=== PATIENT | female | born 1950 | race Native Hawaiian/Other Pacific Islander ===

== ENCOUNTER 2017-01-31 10:50 | Emergency (ER) | payer OTHER ==
[2017-01-31 11:13] VITALS: O2SAT 98
[2017-01-31] MEDS ORDERED: Sodium Chloride 0.9% 1,000 ML IV ONE (11:26)
--- NOTE | 2017-01-31 11:32 | C.PDOC ---
History Of Present Illness 66 yr old female presents to the ER with complaints of hematuria, associated with right sided abdominal pain which started yesterday. Patient states the abdominal pain resolved, however the hematuria continues. Patient denies fever, chills, nausea, vomiting, diarrhea, trauma, recent travel, weakness or numbness. Time Seen by Provider: 01/31/17 11:05 Chief Complaint (Nursing): Abdominal Pain History Per: Patient History/Exam Limitations: no limitations Onset/Duration Of Symptoms: Days (1) Current Symptoms Are (Timing): Gone Pain Scale Rating Of: 1 Location Of Pain/Discomfort: RLQ Radiation Of Pain To:: None Exacerbating Factors: None Recent travel outside of the [place]: No Past Medical History Reviewed: Historical Data, Nursing Documentation, Vital Signs Vital Signs: Last Vital Signs Temp 98.5 F 01/31/17 13:14 Pulse 82 01/31/17 13:14 Resp 18 01/31/17 13:14 BP 162/82 H 01/31/17 13:14 Pulse Ox 98 01/31/17 13:51 - Medical History PMH: HTN Family History: States: No Known Family Hx - Social History Hx Alcohol Use: No Hx Substance Use: No - Immunization History Hx Tetanus Toxoid Vaccination: No Hx Influenza Vaccination: No Hx Pneumococcal Vaccination: No Review Of Systems Except As Marked, All Systems Reviewed And Found Negative. Constitutional: Negative for: Fever, Chills Gastrointestinal: Positive for: Abdominal Pain (Right ). Negative for: Nausea, Vomiting, Diarrhea Genitourinary: Positive for: Hematuria Neurological: Negative for: Weakness, Numbness Physical Exam - Physical Exam Appears: Non-toxic, No Acute Distress Skin: Warm, Dry, No Rash Head: Atraumatic, Normacephalic Eye(s): bilateral: Normal Inspection, PERRL, EOMI Oral Mucosa: Moist Neck: Normal ROM, No Midline Cervical Tenderness, No Paracervical Tenderness, Supple Chest: Symmetrical, No Tenderness Cardiovascular: Rhythm Regular, No Friction Rub, No Murmur Respiratory: Normal Breath Sounds, No Rales, No Rhonchi, No Wheezing, No Other Gastrointestinal/Abdominal: Normal Exam, Soft, No Tenderness, No Guarding Back: Normal Inspection, No CVA Tenderness, No Vertebral Tenderness Extremity: Normal ROM, No Swelling Neurological/Psych: Oriented x3, Normal Speech, Normal Motor Gait: Steady ED Course And Treatment - Laboratory Results Result Diagrams: 01/31/17 11:38 01/31/17 11:38 O2 Sat by Pulse Oximetry: 98 (RA) Pulse Ox Interpretation: Normal - CT Scan/US CT - Abd & Pelvis Other Rad Studies (CT/US): Read By Radiologist, Radiology Report Reviewed CT/US Interpretation: PROCEDURE: CT Abdomen and Pelvis without intravenous contrast. HISTORY: right sided abd pain, R flank. COMPARISON: 04/23/2012. TECHNIQUE: Without contrast.. Contrast Dose: 0. Radiation dose: Total exam DLP = 438.61 mGy-cm. This CT exam was performed using one or more of the following dose reduction techniques: Automated exposure control, adjustment of the mA and/or kV according to patient size, and/or use of iterative reconstruction technique. FINDINGS: LOWER THORAX: Unremarkable. LIVER: Please note that evaluation of the liver is limited. The most superior aspect of the right hepatic lobe has not been included in this examination. The liver is enlarged, measuring approximately 18.9 cm craniocaudal. The liver is diffusely diminished in attenuation consistent with fatty infiltration. There is no mass. The contour is smooth. There is no biliary dilatation. GALLBLADDER AND BILE DUCTS: Unremarkable. PANCREAS: Unremarkable. No gross lesion or ductal dilatation. SPLEEN: Unremarkable. ADRENALS: Unremarkable. No mass. KIDNEYS AND URETERS: Mild right hydronephrosis and hydroureter. 2 mm nonobstructing right lower pole renal calculus. 4 mm calculus at the right ureteral orifice. No left renal or ureteral calculus. No left hydronephrosis. No renal mass. . Minimal right perinephric stranding. VASCULATURE: Unremarkable. No aortic aneurysm. BOWEL: Sigmoid diverticulosis without evidence of diverticulitis. No bowel obstruction. No other abnormal bowel loops. APPENDIX: Unremarkable. Normal appendix. PERITONEUM: Unremarkable. No free fluid. No free air. LYMPH NODES: Unremarkable. No enlarged lymph nodes. BLADDER: Unremarkable. REPRODUCTIVE: Status post hysterectomy. BONES : Mild lumbar levoscoliosis. OTHER FINDINGS: None. IMPRESSION: Obstructing 4 mm calculus at the right ureteral orifice with mild right hydroureteronephrosis. 2 mm nonobstructing right lower pole renal calculus. Mild hepatomegaly with fatty infiltration of the liver. Sigmoid diverticulosis without evidence of diverticulitis. Medical Decision Making Medical Decision Making: PLAN: * CT - Abd & Pelvis * CBC * CMP * Urinalysis * Sodium Chloride IV Results were made aware to the patient and was advised that the stone is obstructing but she does not want to stay in the hospital. On re-exam, the patient reports improvement of symptoms and is pain free. Lungs are CTA, heart is RRR, abdomen is soft, non-tender and patient is tolerating PO well. Ambulatory in the ED with steady gait. Follow up with the medical doctor within 1-2 days, Return if worsened. Disposition - Disposition Referrals: Boris Henao MD [Staff Provider] - Disposition: HOME/ ROUTINE Disposition Time: 13:18 Condition: GOOD Additional Instructions: Follow up with the Urologist within 1-2 days, Return if worsened. Prescriptions: Ciprofloxacin [Cipro] 1 tab PO BID #14 tab Naproxen [Naprosyn] 500 mg PO BID #20 tab Tamsulosin [Flomax] 0.4 mg PO DAILY #7 cap Instructions: Renal Colic (ED) Forms: [facility] (Spanish), Work Excuse - Clinical Impression Clinical Impression: Renal colic, Hydronephrosis - PA / AIR EXPORT COORDINATOR / Resident Statement MD/DO has reviewed & agrees with the documentation as recorded. - Scribe Statement The provider has reviewed the documentation as recorded by the Scribe Ena Carolina All medical record entries made by the Scribe were at my direction and personally dictated by me. I have reviewed the chart and agree that the record accurately reflects my personal performance of the history, physical exam, medical decision making, and the department course for this patient. I have also personally directed, reviewed, and agree with the discharge instructions and disposition.
[2017-01-31] MEDS ORDERED: Sodium Chloride 0.9% 1,000 ML ONE (11:34)
[2017-01-31 11:40] LABS: RBC URINE 2963 /hpf (0-3); URINE BILIRUBIN NEGATIVE (NEGATIVE); URINE BLOOD 3+ (NEGATIVE); URINE COLOR Red (YELLOW); URINE GLUCOSE (UA) 3+ mg/dL (Normal); URINE KETONE TRACE mg/dL (NEGATIVE); URINE LEUKOCYTE ESTERASE NEG Leu/uL (Negative); URINE PROTEIN 1+ mg/dL (NEGATIVE); URINE UROBILINOGEN NORMAL mg/dL (0.2-1.0); WBC URINE 5 /hpf (0-5)
[2017-01-31 11:43] LABS: BASO # 0.1 K/uL (0.0-0.2); BASO % 0.7 % (0.0-2.0); EOS # 0.2 K/uL (0.0-0.7); EOS % 1.6 % (0.0-4.0); HEMATOCRIT 41.7 % (34.0-47.0); LYMPH # 1.7 K/uL (1.0-4.3); MEAN CELL VOLUME 87.6 fL (81.0-99.0); MEAN CORPUSCULAR HEMOGLOBIN 28.9 pg (27.0-31.0); MEAN PLATELET VOLUME 9.5 fL (7.2-11.7); MONO # 0.6 K/uL (0.0-0.8); MONO % 5.6 % (0.0-10.0); RED CELL DISTRIBUTION WIDTH 13.2 % (11.5-14.5); WHITE BLOOD COUNT 11.3 K/uL (4.8-10.8)
[2017-01-31 12:12] LABS: ALB/GLOB RATIO 1.2 (1.0-2.1); ALKALINE PHOSPHATASE 89 U/L (38-126); ALT/SGPT 57 U/L (9-52); AST/SGOT 36 U/L (14-36); BILIRUBIN,TOTAL 0.5 mg/dL (0.2-1.3); BLOOD UREA NITROGEN 14 mg/dL (7-17); CALCIUM 9.7 mg/dl (8.6-10.4); CARBON DIOXIDE 22 mmol/L (22-30); CHLORIDE 95 mmol/L (98-107); GFR AFRICAN-AMERICAN > 60; GLUCOSE,RANDOM 387 mg/dL (65-105); POTASSIUM 4.3 mmol/L (3.6-5.2); SODIUM 138 mmol/L (132-148); TOTAL PROTEIN 7.8 g/dL (6.3-8.3)
--- NOTE | 2017-01-31 12:49 | CT ---
PROCEDURE: CT Abdomen and Pelvis without intravenous contrast HISTORY: right sided abd pain, R flank COMPARISON: 04/23/2012 TECHNIQUE: Without contrast.. Contrast Dose: 0 Radiation dose: Total exam DLP = 438.61 mGy-cm. This CT exam was performed using one or more of the following dose reduction techniques: Automated exposure control, adjustment of the mA and/or kV according to patient size, and/or use of iterative reconstruction technique. FINDINGS: LOWER THORAX: Unremarkable. LIVER: Please note that evaluation of the liver is limited. The most superior aspect of the right hepatic lobe has not been included in this examination. The liver is enlarged, measuring approximately 18.9 cm craniocaudal. The liver is diffusely diminished in attenuation consistent with fatty infiltration. There is no mass. The contour is smooth. There is no biliary dilatation. GALLBLADDER AND BILE DUCTS: Unremarkable. PANCREAS: Unremarkable. No gross lesion or ductal dilatation. SPLEEN: Unremarkable. ADRENALS: Unremarkable. No mass. KIDNEYS AND URETERS: Mild right hydronephrosis and hydroureter. 2 mm nonobstructing right lower pole renal calculus. 4 mm calculus at the right ureteral orifice. No left renal or ureteral calculus. No left hydronephrosis. No renal mass. . Minimal right perinephric stranding. VASCULATURE: Unremarkable. No aortic aneurysm. BOWEL: Sigmoid diverticulosis without evidence of diverticulitis. No bowel obstruction. No other abnormal bowel loops. APPENDIX: Unremarkable. Normal appendix. PERITONEUM: Unremarkable. No free fluid. No free air. LYMPH NODES: Unremarkable. No enlarged lymph nodes. BLADDER: Unremarkable. REPRODUCTIVE: Status post hysterectomy. BONES: Mild lumbar levoscoliosis. OTHER FINDINGS: None. IMPRESSION: Obstructing 4 mm calculus at the right ureteral orifice with mild right hydroureteronephrosis. 2 mm nonobstructing right lower pole renal calculus. Mild hepatomegaly with fatty infiltration of the liver. Sigmoid diverticulosis without evidence of diverticulitis.
[2017-01-31 13:15] VITALS: BP 162/82; PULSE 82; RESP 18; TEMP 98.5
== END 2017-01-31 13:38 | disposition home or self-care (01) ==
LOC: C.ER 10:50
DX: N13.2 Hydronephrosis with renal and ureteral calculous obstruction (principal)
CPT/HCPCS: 74176; 80053; 81001; 83690; 85025; 87086; 96360; 99284; J7040

== ENCOUNTER 2017-02-17 05:52 | Day surgery (SDC) | payer OTHER ==
[2017-02-11 09:55] VITALS: BMI 27.8
[2017-02-17] MEDS ORDERED: Gentamicin 160 MG in Sodium Chloride 0.9% 100 ML IVPB ONE (07:57)
[2017-02-17] MEDS ORDERED: Propofol 10 mg/ml Inj (20 ML) ONE (08:04)
[2017-02-17] MEDS ORDERED: Lidocaine 2% Jelly (Uro-Jet) ONE (08:06)
[2017-02-17] MEDS ORDERED: Ciprofloxacin 400mg/200ml D5W 400 MG/200 ML BAG IVPB ONE (08:06)
[2017-02-17] MEDS ORDERED: Iohexol 240 (50 ml) ONE (08:06)
[2017-02-17] MEDS ORDERED: Povidone Iodine 5% Spr TP ONE (08:17)
--- NOTE | 2017-02-17 08:36 | PCM.SURG1 ---
Surgeon's Initial Post Op Note - Surgeon's Notes Surgeon: Elisabeth Seam Press Operator: CHELLY Type of Anesthesia: General LMA Anesthesia Administered By: Staff Pre-Operative Diagnosis: Right ureteraol calculi Operative Findings: No evidence of calculi Post-Operative Diagnosis: No evidence to calculi Operation Performed: Cysto right calculi Specimen/Specimens Removed: na Estimated Blood Loss: EBL {In ML}: 0 Blood Products Given: N/A Drains Used: No Drains Post-Op Condition: Good Date of Surgery/Procedure: 02/17/17 Time of Surgery/Procedure: 08:36
[2017-02-17] MEDS ORDERED: HYDROmorphone 0.5 mg/0.5 ml ISec IVP PRN (08:38)
--- NOTE | 2017-02-17 09:31 | OP ---
PROCEDURE DATE: 02/17/2017 PREOPERATIVE DIAGNOSIS: Right ureteral calculi. POSTOPERATIVE DIAGNOSIS: Passed right ureteral calculi. PROCEDURE: Cysto and retrograde. SURGEON: Onel Barber MD PROCEDURE FOLLOWS: The patient was draped and prepped in the usual manner. She was given prophylactic antibiotics. Prior to the procedure, she signed a detailed informed consent, detailing all risks and complications and limitations of this procedure and alternative methods of treating renal ureteral calculi. The patient was cystoscoped with a number 21 Storz panendoscope. The x-rays reviewed, which showed a lower ureteral calculi on the right. A retrograde pyelogram was performed that showed no evidence of filling defect. We were however noted the large amount of crystals within the bladder consisting was recently passed out. Based on the above findings, there are no remaining obstructing stones. The patient should continue to strain all urine and she will followup in the office in two weeks with any specimens in a dry container. She understood, the instructions were given through postoperatively. Onel Barber MD
[2017-02-17 11:07] VITALS: RESP 18
[2017-02-17 11:49] VITALS: BP 123/59; PULSE 84; TEMP 97.9; O2SAT 96
--- NOTE | 2017-02-17 17:12 | RAD ---
PROCEDURE: HISTORY: Right renal calculi fluoroscopy up to 1 hour COMPARISON: None TECHNIQUE: Total fluoroscopic time utilized during the procedure: 19 point sick seconds. Total dose 0.14837 mGy cm squared FINDINGS: Submitted images from the current procedure: 1 Please refer to the physician's notes performing the procedure. IMPRESSION: Less than 1 hour fluoroscopic time utilized during performance of the procedure
== END 2017-02-17 11:40 | disposition home or self-care (01) ==
LOC: C.SDS 05:52
PROVIDERS: ATTEND Urology
DX: N20.1 Calculus of ureter (principal)
CPT/HCPCS: 52005; 82948; C1769; J0744; J1580

== ENCOUNTER 2018-05-13 22:04 | Emergency (ER) | payer BC, OTHER ==
[2018-05-13 22:04] VITALS: BMI 27.8
[2018-05-13 22:21] VITALS: O2SAT 98
[2018-05-13 22:33] LABS: BASO # 0.1 K/uL (0.0-0.2); BASO % 1.2 % (0.0-2.0); EOS # 0.2 K/uL (0.0-0.7); EOS % 3.4 % (0.0-4.0); HEMOGLOBIN 12.5 g/dL (11.0-16.0); LYMPH # 2.4 K/uL (1.0-4.3); LYMPH % 34.8 % (20.0-40.0); MEAN CORPUSCULAR HEMOGLOBIN 29.4 pg (27.0-31.0); MEAN CORPUSCULAR HGB CONC 33.8 g/dL (33.0-37.0); MEAN PLATELET VOLUME 9.5 fL (7.2-11.7); MONO # 0.7 K/uL (0.0-0.8); MONO % 10.4 % (0.0-10.0); NEUT # 3.4 K/uL (1.8-7.0); NEUT % 50.2 % (50.0-75.0); NRBC % 0.2 % (0.0-2.0); RBC 4.24 Mil/uL (3.80-5.20); RED CELL DISTRIBUTION WIDTH 12.8 % (11.5-14.5); WHITE BLOOD COUNT 6.8 K/uL (4.8-10.8)
[2018-05-13 22:53] LABS: ALB/GLOB RATIO 1.3 (1.0-2.1); ALBUMIN 4.3 g/dL (3.5-5.0); ALT/SGPT 31 U/L (9-52); AST/SGOT 29 U/L (14-36); BLOOD UREA NITROGEN 33 mg/dL (7-17); CALCIUM 9.3 mg/dl (8.6-10.4); GFR NON-AFRICAN AMERICAN 32
[2018-05-13] MEDS ORDERED: Sodium Chloride 0.9% 1,000 ML IV SCH (23:15)
[2018-05-13 23:40] LABS: T3 1.45 nmol/L (1.49-2.60)
--- NOTE | 2018-05-14 00:04 | C.PDOC ---
History Of Present Illness 67 year old female with PMHx of diabetes presents to the ED for evaluation of feeling lightheaded. Patient reports that today while at work she was feeing lightheaded for approximately 1 minute. Patient states she was eating a lot of ice cream today as well. Patient currently asymptomatic. Patient denies fever, chills, cough, headache, dizziness, CP, SOB, blurry/double vision. Time Seen by Provider: 05/13/18 22:14 Chief Complaint (Nursing): Dizziness/Lightheaded History Per: Patient History/Exam Limitations: no limitations Onset/Duration Of Symptoms: Hrs Current Symptoms Are (Timing): Still Present Number Of Syncopal Episodes: 1 Activity At Onset Of Symptoms: Walking Associated Symptoms Preceding Syncopal Episode: Lightheadedness Seizure Or Post-ictal Symptoms: None Possible Causative Factor(s): Other Recent travel outside of the [place]: No Additional History Per: Patient Past Medical History Reviewed: Historical Data, Nursing Documentation, Vital Signs Vital Signs: Last Vital Signs Temp 97.8 F 05/13/18 22:08 Pulse 101 H 05/13/18 22:08 Resp 19 05/13/18 22:08 BP 159/86 H 05/13/18 22:08 Pulse Ox 98 05/13/18 22:08 - Medical History PMH: Bronchitis (" MANY YEARS AGO"), Diabetes, HTN, Kidney Stones, Chronic Kidney Disease Surgical History: No Surg Hx Family History: States: Unknown Family Hx - Social History Hx Alcohol Use: No Hx Substance Use: No - Immunization History Hx Tetanus Toxoid Vaccination: No Hx Influenza Vaccination: No Hx Pneumococcal Vaccination: No Review Of Systems Constitutional: Negative for: Fever, Chills Eyes: Negative for: Vision Change Cardiovascular: Negative for: Chest Pain, Palpitations Respiratory: Negative for: Cough, Shortness of Breath Gastrointestinal: Negative for: Nausea, Vomiting, Abdominal Pain Skin: Negative for: Rash Neurological: Negative for: Weakness, Numbness, Headache, Dizziness Physical Exam - Physical Exam Appears: Non-toxic, No Acute Distress Skin: Normal Color, Warm, Dry Head: Atraumatic, Normacephalic Eye(s): bilateral: Normal Inspection, PERRL, EOMI Oral Mucosa: Moist Neck: Normal ROM, Supple Chest: Symmetrical Cardiovascular: Rhythm Regular Respiratory: Normal Breath Sounds, No Rales, No Rhonchi, No Wheezing Gastrointestinal/Abdominal: Soft, No Tenderness, No Guarding, No Rebound Extremity: Normal ROM, No Tenderness, No Swelling Neurological/Psych: Oriented x3, Normal Speech, Normal Cognition Gait: Steady ED Course And Treatment - Laboratory Results Result Diagrams: 05/13/18 22:30 05/13/18 22:30 ECG: Interpreted By Me, Viewed By Me ECG Rhythm: Sinus Tachycardia Rate From EC (BPM) O2 Sat by Pulse Oximetry: 98 (ON RA) Pulse Ox Interpretation: Normal - CT Scan/US CT head Other Rad Studies (CT/US): Read By Radiologist, Radiology Report Reviewed CT/US Interpretation: EXAM: CT Head without Intravenous Contrast. CLINICAL HISTORY: DIZZINESS. TECHNIQUE: Axial computed tomography images of the head/brain without intravenous contrast. 0.00 mGy-cm. COMPARISON: None provided. FINDINGS: BRAIN. Chronic periventricular and subcortical microvascular disease is seen. 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 Bilateral basal ganglia calcifications are seen. VENTRICLES: There is generalized parenchymal atrophy noted as demonstrated by symmetrical dilatation of ventricles and sulci. ORBITS: The orbits are unremarkable. SINUSES AND MASTOIDS: The paranasal sinuses and mastoid air cells are clear. BONES: No fracture. SOFT TISSUES: Unremarkable. MISCELLANEOUS: No acute intracranial pathology. IMPRESSION: 1. There is generalized parenchymal atrophy noted as demonstrated by symmetrical dilatation of ventricles and sulci. 2. Chronic periventricular and subcortical microvascular disease is seen. 3. 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 4. Bilateral basal ganglia calcifications are seen. 5. No acute intracranial pathology. . Electronically signed on May 13, 2018 11:27:07 PM EST by: Donaldo Park M.D., MARGARITA Certified By ABR & CBC[employer]. Fellowship Trained MRI and CT Specialist. Medical Decision Making Medical Decision Making: Plan: * CT head * EKG * Labs * CXR * Antivert 25 mg PO * IV fluids Disposition - Disposition Referrals: Donaldo Howard MD [Staff Provider] - Disposition: HOME/ ROUTINE Disposition Time: 23:30 Condition: IMPROVED Additional Instructions: RAQUEL MOYER, thank you for letting us take care of you today. The emergency medical care you received today was directed at your acute symptoms. If you were prescribed any medication, please fill it and take as directed. It may take several days for your symptoms to resolve. Return to the Emergency Department if your symptoms worsen, do not improve, or if you have any other problems. Please contact your doctor or call one of the physicians/clinics you have been r eferred to that are listed on the Patient Visit Information form that is included in your discharge packet. Bring any paperwork you were given at discharge with you along with any medications you are taking to your follow up visit. Our treatment cannot replace ongoing medical care by a primary care provider outside of the emergency department. Thank you for allowing the [facility] team to be part of your care today. Follow up with your primary care doctor in 2-3 days for re-evaluation and further management. Prescriptions: Meclizine [Meclizine*] 25 mg PO Q6 PRN #20 tab PRN Reason: Dizziness Instructions: Hyperglycemia, Adult (DC), Dizziness, Nonvertigo, (DC) Forms: [facility] (Azeri), School Excuse, Work Excuse - Clinical Impression Clinical Impression: Lightheadedness - Scribe Statement The provider has reviewed the documentation as recorded by the Scribe Jean-Paul Pierce All medical record entries made by the Scribe were at my direction and personally dictated by me. I have reviewed the chart and agree that the record accurately reflects my personal performance of the history, physical exam, medical decision making, and the department course for this patient. I have also personally directed, reviewed, and agree with the discharge instructions and disposition.
[2018-05-14 00:14] VITALS: BP 126/61; PULSE 96; RESP 20; TEMP 98.4
--- NOTE | 2018-05-14 08:24 | CT ---
Date of service: 05/13/2018 PROCEDURE: CT HEAD WITHOUT CONTRAST. HISTORY: r/o ICH COMPARISON: None available. TECHNIQUE: Axial computed tomography images were obtained through the head/brain without intravenous contrast. Radiation dose: Total exam DLP = 1728.54 mGy-cm. This CT exam was performed using one or more of the following dose reduction techniques: Automated exposure control, adjustment of the mA and/or kV according to patient size, and/or use of iterative reconstruction technique. FINDINGS: HEMORRHAGE: No intracranial hemorrhage. BRAIN: There are old infarctions in the left frontal periventricular white matter, caudate head and anterior limb of internal capsule with volume loss and ex vacuo dilatation of the frontal horn. There is no mass, mass effect or abnormal extra-axial fluid collection. The midline sagittal structures are normal. There are symmetric senile bilateral basal ganglia calcifications. VENTRICLES: There is mild age-related global parenchymal volume loss and proportionate enlargement of the ventricles and cortical sulci. CALVARIUM: There is no calvarial fracture or extracranial soft tissue swelling. PARANASAL SINUSES: Predominantly clear. MASTOID AIR CELLS: The right mastoid air cells are clear. The left mastoid air cells are underdeveloped. OTHER FINDINGS: None. IMPRESSION: No acute intracranial abnormality. 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 A preliminary report was provided by [facility].
--- NOTE | 2018-05-14 10:47 | RAD ---
Date of service: 05/13/2018 PROCEDURE: CHEST RADIOGRAPH, 1 VIEW HISTORY: chest pain COMPARISON: 02/11/2017. FINDINGS: LUNGS: The lungs are well inflated and clear. PLEURA: No pneumothorax or pleural effusion. CARDIOVASCULAR: Mild cardiomegaly. There are aortic atherosclerotic calcifications present. OSSEOUS STRUCTURES: Within normal limits for the patient's age. VISUALIZED UPPER ABDOMEN: Normal. OTHER FINDINGS: None. IMPRESSION: No active pulmonary disease.
--- NOTE | 2018-05-14 11:57 | CARD ---
APPROVED REPORT Date of service: 05/13/2018 EKG Measurement Heart [id number] <Conclusion> Sinus tachycardia Possible Inferior infarct, age undetermined Abnormal ECG
== END 2018-05-14 00:15 | disposition home or self-care (01) ==
LOC: C.ER 22:04
DX: R42 Dizziness and giddiness (principal); E11.9 Type 2 diabetes mellitus without complications; I12.9 Hypertensive chronic kidney disease with stage 1 through stage 4 chronic kidney disease, or unspecified chronic kidney disease; N18.9 Chronic kidney disease, unspecified
CPT/HCPCS: 70450; 71045; 80053; 82948; 84443; 84480; 84484; 85025; 93005; 99285; J7030

== ENCOUNTER 2018-06-21 11:45 | Outpatient (CLI) | payer OTHER | END 2018-06-21 11:46 | disposition home or self-care (01) | LOC: C.LAB 11:45 | DX: E11.65 Type 2 diabetes mellitus with hyperglycemia (principal); E78.49 Other hyperlipidemia; E55.9 Vitamin D deficiency, unspecified; E79.0 Hyperuricemia without signs of inflammatory arthritis and tophaceous disease; R53.83 Other fatigue ==

== ENCOUNTER 2018-07-02 11:24 | Outpatient (CLI) | payer OTHER | END 2018-07-02 11:25 | disposition home or self-care (01) | LOC: C.DEXAIC 11:25 | DX: M81.0 Age-related osteoporosis without current pathological fracture (principal); Z12.31 Encounter for screening mammogram for malignant neoplasm of breast ==